=== PATIENT | female | born 1950 | race Caucasian/White ===

== ENCOUNTER 2017-01-30 03:41 | Inpatient (IN) | payer OTHER ==
[~2017-01-30] VITALS: Ht 165.1 cm; Wt 168.5 kg
[2017-01-30] VITALS (10 sets, daily range): BP systolic 92–108; BP diastolic 54–72
[2017-01-30 04:55] LABS: HEMATOCRIT 44.3 % (36.0-46.0); MCH 27.9 PG (29.0-34.0); MCHC 29.6 G/DL (30.0-36.0); MCV 94.3 FL (83-99); MEAN PLAT.VOLUME 11.6 uM^3 (9.5-12.4); PLATELET COUNT 167 K/uL (156-360); RBC DIS.WIDTH-CV 13.9 % (11.8-14.6); RBC DIS.WIDTH-SD 48.3 % (39-53); WHITE BLOOD COUNT 6.6 K/uL (4.1-10.2)
[2017-01-30 05:01] LABS: CARBON DIOXIDE (BICARBONATE) 37.8 MEQ/L (20-31)
[2017-01-30 05:04] LABS: CHLORIDE 96 mEq/L (99-109); INTER. NORMALIZED RATIO 1.3; POTASSIUM 4.4 mEq/L (3.7-5.4); PROTHROMBIN TIME 13.5 (9.2-11.2); PTT 39.7 (25-32); SODIUM 137 mEq/L (136-147)
[2017-01-30 05:06] LABS: GLUCOSE 170 mg/dL (70-99)
[2017-01-30 05:08] LABS: ANION GAP 9 MEQ/L (2-14); TOTAL BILIRUBIN 1.1 mg/dL (0.0-1.0)
[2017-01-30 05:10] LABS: ALKALINE PHOSPHATASE 86 IU/L (3-129); GFR ESTIMATE (CALCULATED) > 59 mL/min/
[2017-01-30 05:11] LABS: UREA NITROGEN (BUN) 14 mg/dL (9-23)
[2017-01-30 05:13] LABS: LIPASE 294 U/L (1.0-51.0)
[2017-01-30 05:16] LABS: TROP-I INTERPRETATION NEGATIVE; TROPONIN-I 0.02 ng/mL (0.0-0.30)
[2017-01-30 06:23] LABS: BASE EXCESS 7.2 mEq/L (-3 to +3); BICARBONATE 37.2 mEq/L (22-26); CARBOXY HGB 1.9 % (0-5); METHEMOGLOBIN 1.2 % (0-1.5); PCO2 83 mm Hg (35-45); PO2 78 mm Hg (80-100)
[2017-01-30 06:24] LABS: COMMENTS - BLOOD GASES C+A+; DEVICE NIV; FI02 60 %; MODE SPONT; PEEP 5 CM/H20; PRES. SUPPORT 12 CM/H2O; SITE LR; TOTAL RESP RATE 19 resp/min; pH 7.26 (7.35-7.45)
[2017-01-30 09:00] LABS: BASE EXCESS 7.8 mEq/L (-3 to +3); CARBOXY HGB 1.9 % (0-5); COMMENTS - BLOOD GASES A+C+; PCO2 77 mm Hg (35-45); PO2 60 mm Hg (80-100); SITE LR; pH 7.29 (7.35-7.45)
[2017-01-30 09:01] LABS: DEVICE 980 MASK VENT; FI02 40 %; MODE SPONT NIV; PEEP 5 CM/H20; PRES. SUPPORT 12 CM/H2O; TOTAL RESP RATE 23 resp/min
[2017-01-30] MEDS ORDERED: XARELTO20 MG PO (09:57)
[2017-01-30] MEDS ORDERED: TOPROL XL50 MG PO (09:57)
[2017-01-30] MEDS ORDERED: GABAPENTIN100 MG PO (09:58)
[2017-01-30] MEDS ORDERED: LISINOPRIL20 MG PO (09:58)
[2017-01-30] MEDS ORDERED: LASIX40 MG PO (09:59)
[2017-01-30] MEDS ORDERED: NOVOLOG PE100 UNITS/ SC (10:01)
[2017-01-30] MEDS ORDERED: PROAIR HFA8.5 GM IH (10:01)
[2017-01-30] MEDS ORDERED: OINTMENT (10:02)
[2017-01-30] MEDS ORDERED: PROVENTIL,2.5 MG/3 M IH (10:02)
[2017-01-30 17:21] LABS: BASE EXCESS 7.2 mEq/L (-3 to +3); BICARBONATE 35.6 mEq/L (22-26); CARBOXY HGB 2.1 % (0-5); METHEMOGLOBIN 1.7 % (0-1.5); PCO2 69 mm Hg (35-45); PO2 80 mm Hg (80-100); pH 7.32 (7.35-7.45)
[2017-01-30 17:22] LABS: COMMENTS - BLOOD GASES A+C+; DEVICE HFNC; O2 FLOW 15 L/MIN; SITE LR; TOTAL RESP RATE 21 resp/min
[2017-01-30 18:07] LABS: METH RESISTANT S AUREUS PCR POSITIVE (NEGATIVE)
[2017-01-30 18:18] LABS: PROBE CHECK PASS
[2017-01-31] VITALS (13 sets, daily range): BP systolic 87–123; BP diastolic 47–85
[2017-01-31 06:46] LABS: ANION GAP 7 MEQ/L (2-14); CHLORIDE 99 MEQ/L (99-109); GFR ESTIMATE (CALCULATED) > 59 mL/min/; POTASSIUM 4.4 MEQ/L (3.7-5.4); SAMPLE HEMOLYSIS CHECK 0; SAMPLE ICTERIC CHECK 0; SAMPLE LIPEMIA CHECK 0; SODIUM 137 MEQ/L (136-147); UREA NITROGEN (BUN) 12 mg/dL (9-23)
[2017-01-31 07:27] LABS: EOSINOPHIL (%) 0 % (0-5); HEMATOCRIT 38.6 % (36.0-46.0); IMMATURE GRANULOCYTE (%) 0.5 % (0.0-0.7); INSTRUMENT ABS NEUTROPHIL CT 5.2 K/uL; LYMPHOCYTE COUNT 0.5 K/uL (1.0-2.8); MCH 27.5 PG (29.0-34.0); MCHC 29.5 G/DL (30.0-36.0); MEAN PLAT.VOLUME 12.1 uM^3 (9.5-12.4); MONOCYTE (%) 5.1 % (3-12); MONOCYTE COUNT 0.3 K/uL (0-0.8); NEUTROPHIL (%) 86.4 % (45-76); NEUTROPHIL COUNT 5.2 K/uL (1.8-6.4); PLATELET COUNT 166 K/uL (156-360); RBC DIS.WIDTH-SD 48.2 % (39-53); RED BLOOD COUNT 4.15 M/uL (3.80-5.20)
[2017-01-31 08:12] LABS: GLUCOSE 116 mg/dL (70-99)
[2017-01-31 12:15] LABS: POINT-OF-CARE METER ID UU14174217
[2017-01-31 19:31] LABS: POINT-OF-CARE METER ID UU14174217
[2017-02-01 00:23] VITALS: BP 133/81
[2017-02-01 04:00] VITALS: BP 104/69
[2017-02-01 07:19] LABS: ANION GAP 5 MEQ/L (2-14); CHLORIDE 98 MEQ/L (99-109); GFR ESTIMATE (CALCULATED) > 59 mL/min/; GLUCOSE 135 mg/dL (70-99); POTASSIUM 4.3 MEQ/L (3.7-5.4); SAMPLE HEMOLYSIS CHECK 0; SAMPLE ICTERIC CHECK 0; SAMPLE LIPEMIA CHECK 0; SODIUM 137 MEQ/L (136-147); UREA NITROGEN (BUN) 14 mg/dL (9-23)
[2017-02-01 07:22] LABS: VANCOMYCIN, TROUGH 17.7 MCG/ML (10-20)
[2017-02-01 07:37] LABS: POINT-OF-CARE METER ID UU14188625
[2017-02-01 07:46] LABS: HEMATOCRIT 31.9 % (36.0-46.0); MCH 27.6 PG (29.0-34.0); MCHC 30.4 G/DL (30.0-36.0); MCV 90.6 FL (83-99); MEAN PLAT.VOLUME 12.5 uM^3 (9.5-12.4); PLATELET COUNT 181 K/uL (156-360); RBC DIS.WIDTH-CV 14.2 % (11.8-14.6); RBC DIS.WIDTH-SD 47.1 % (39-53); RED BLOOD COUNT 3.52 M/uL (3.80-5.20); WHITE BLOOD COUNT 6.8 K/uL (4.1-10.2)
[2017-02-01 08:12] VITALS: BP 125/68
[2017-02-01 11:14] VITALS: BP 128/68
[2017-02-01 11:44] LABS: POINT-OF-CARE METER ID UU14188625
[2017-02-01 20:11] VITALS: BP 138/98
[2017-02-02 02:00] VITALS: BP 128/82
[2017-02-02 07:08] LABS: ANION GAP 7 MEQ/L (2-14); CHLORIDE 100 MEQ/L (99-109); GFR ESTIMATE (CALCULATED) > 59 mL/min/; GLUCOSE 158 mg/dL (70-99); POTASSIUM 4.2 MEQ/L (3.7-5.4); SAMPLE HEMOLYSIS CHECK 0; SAMPLE ICTERIC CHECK 0; SAMPLE LIPEMIA CHECK 0; SODIUM 141 MEQ/L (136-147); UREA NITROGEN (BUN) 17 mg/dL (9-23)
[2017-02-02 08:22] VITALS: BP 136/81
[2017-02-02 11:35] VITALS: BP 140/82
[2017-02-02 12:23] LABS: POINT-OF-CARE METER ID UU14188625
[2017-02-02 16:33] LABS: POINT-OF-CARE METER ID UU14188625
[2017-02-02 16:37] VITALS: BP 134/94
[2017-02-02 20:30] VITALS: BP 160/89
[2017-02-03 07:56] VITALS: BP 128/82
[2017-02-03 09:03] LABS: ANION GAP 7 MEQ/L (2-14); CHLORIDE 102 MEQ/L (99-109); GFR ESTIMATE (CALCULATED) > 59 mL/min/; GLUCOSE 149 mg/dL (70-99); POTASSIUM 5.3 MEQ/L (3.7-5.4); SAMPLE HEMOLYSIS CHECK 2; SAMPLE ICTERIC CHECK 0; SAMPLE LIPEMIA CHECK 0; SODIUM 139 MEQ/L (136-147); UREA NITROGEN (BUN) 21 mg/dL (9-23)
[2017-02-03 11:02] LABS: POTASSIUM 4.6 MEQ/L (3.7-5.4)
[2017-02-03 15:21] VITALS: BP 117/73
[2017-02-04] VITALS: BP 145/85
[2017-02-04 07:28] LABS: POINT-OF-CARE METER ID UU14188625
[2017-02-04 07:50] VITALS: BP 121/85
[2017-02-04 11:30] LABS: POINT-OF-CARE METER ID UU14188625
[2017-02-04 16:06] VITALS: BP 129/78
[2017-02-04 17:13] LABS: POINT-OF-CARE METER ID UU14188625
[2017-02-04 21:29] LABS: POINT-OF-CARE METER ID UU14188625
[2017-02-05] VITALS: BP 132/84
[2017-02-05 08:09] LABS: POINT-OF-CARE METER ID UU14188625
[2017-02-05 16:12] VITALS: BP 158/76
[2017-02-05 21:42] LABS: POINT-OF-CARE METER ID UU14174225
[2017-02-05 21:50] VITALS: BP 118/77
[2017-02-05 22:59] VITALS: BP 122/76
[2017-02-06 07:41] VITALS: BP 130/87
[2017-02-06 11:43] LABS: POINT-OF-CARE METER ID UU14188625
[2017-02-06 12:19] LABS: HEMATOCRIT 46.8 % (36.0-46.0); MCH 26.8 PG (29.0-34.0); MCHC 29.7 G/DL (30.0-36.0); MCV 90.2 FL (83-99); MEAN PLAT.VOLUME 11.8 uM^3 (9.5-12.4); PLATELET COUNT 232 K/uL (156-360); RBC DIS.WIDTH-CV 14.2 % (11.8-14.6); RBC DIS.WIDTH-SD 47.1 % (39-53)
[2017-02-06 12:21] LABS: ANION GAP 8 MEQ/L (2-14); CHLORIDE 94 MEQ/L (99-109); GFR ESTIMATE (CALCULATED) > 59 mL/min/; GLUCOSE 178 mg/dL (70-99); POTASSIUM 4.3 MEQ/L (3.7-5.4); SAMPLE HEMOLYSIS CHECK 0; SAMPLE ICTERIC CHECK 0; SAMPLE LIPEMIA CHECK 0; SODIUM 139 MEQ/L (136-147); UREA NITROGEN (BUN) 23 mg/dL (9-23)
[2017-02-06 12:26] LABS: RED BLOOD COUNT 5.19 M/uL (3.80-5.20); WHITE BLOOD COUNT 13.6 K/uL (4.1-10.2)
[2017-02-06 15:29] VITALS: BP 134/74
[2017-02-06 21:48] LABS: POINT-OF-CARE METER ID UU14174225
[2017-02-06 23:03] VITALS: BP 129/87
[2017-02-07 06:53] LABS: HEMATOCRIT 41.9 % (36.0-46.0); MCH 27.6 PG (29.0-34.0); MCHC 31.3 G/DL (30.0-36.0); MCV 88.4 FL (83-99); MEAN PLAT.VOLUME 11.9 uM^3 (9.5-12.4); PLATELET COUNT 211 K/uL (156-360); RBC DIS.WIDTH-CV 14.1 % (11.8-14.6); RBC DIS.WIDTH-SD 45.9 % (39-53); RED BLOOD COUNT 4.74 M/uL (3.80-5.20); WHITE BLOOD COUNT 10.1 K/uL (4.1-10.2)
[2017-02-07 07:18] LABS: ANION GAP 7 MEQ/L (2-14); CHLORIDE 95 MEQ/L (99-109); GFR ESTIMATE (CALCULATED) > 59 mL/min/; GLUCOSE 147 mg/dL (70-99); SAMPLE HEMOLYSIS CHECK 1; SAMPLE ICTERIC CHECK 0; SAMPLE LIPEMIA CHECK 0; SODIUM 138 MEQ/L (136-147); UREA NITROGEN (BUN) 23 mg/dL (9-23)
[2017-02-07 07:19] LABS: POTASSIUM 4.5 MEQ/L (3.7-5.4)
[2017-02-07 07:53] LABS: POINT-OF-CARE METER ID UU14188625
[2017-02-07 08:02] VITALS: BP 141/76
[2017-02-07 09:34] VITALS: BP 156/89
[2017-02-07 15:15] VITALS: BP 137/86
[2017-02-07 16:28] LABS: POINT-OF-CARE METER ID UU14188625
[2017-02-07 21:31] LABS: POINT-OF-CARE METER ID UU14174225
[2017-02-08] VITALS: BP 125/71
[2017-02-08 07:41] LABS: EOSINOPHIL (%) 0.8 % (0-5); EOSINOPHIL COUNT 0.1 K/uL (0-0.3); HEMATOCRIT 43.4 % (36.0-46.0); IMMATURE GRANULOCYTE (%) 1.6 % (0.0-0.7); IMMATURE GRANULOCYTE COUNT 0.2 K/uL; LYMPHOCYTE COUNT 1.3 K/uL (1.0-2.8); MCH 27.4 PG (29.0-34.0); MCHC 30.6 G/DL (30.0-36.0); MCV 89.5 FL (83-99); MEAN PLAT.VOLUME 12.5 uM^3 (9.5-12.4); MONOCYTE (%) 6.9 % (3-12); MONOCYTE COUNT 0.6 K/uL (0-0.8); PLATELET COUNT 183 K/uL (156-360); RBC DIS.WIDTH-CV 14.6 % (11.8-14.6); RBC DIS.WIDTH-SD 47.4 % (39-53); RED BLOOD COUNT 4.85 M/uL (3.80-5.20); WHITE BLOOD COUNT 9.2 K/uL (4.1-10.2)
[2017-02-08 08:10] LABS: ANION GAP 7 MEQ/L (2-14); CHLORIDE 95 MEQ/L (99-109); GFR ESTIMATE (CALCULATED) > 59 mL/min/; SAMPLE HEMOLYSIS CHECK 2; SAMPLE ICTERIC CHECK 0; SAMPLE LIPEMIA CHECK 0; SODIUM 137 MEQ/L (136-147); UREA NITROGEN (BUN) 21 mg/dL (9-23)
[2017-02-08 08:16] LABS: GLUCOSE 107 mg/dL (70-99); POTASSIUM 4.7 MEQ/L (3.7-5.4)
[2017-02-08 09:17] VITALS: BP 137/89
[2017-02-08 13:32] LABS: TROP-I INTERPRETATION NEGATIVE; TROPONIN-I 0.04 ng/mL (0.0-0.30)
[2017-02-08 16:04] VITALS: BP 142/76
[2017-02-08 16:34] LABS: POINT-OF-CARE METER ID UU14188625
[2017-02-08 18:16] LABS: TROP-I INTERPRETATION NEGATIVE; TROPONIN-I 0.04 ng/mL (0.0-0.30)
[2017-02-08 22:03] LABS: POINT-OF-CARE METER ID UU14174225
[2017-02-09] VITALS: BP 116/77
[2017-02-09 08:03] LABS: POINT-OF-CARE METER ID UU14174225
[2017-02-09 08:31] VITALS: BP 132/66
[2017-02-09 11:24] LABS: POINT-OF-CARE METER ID UU14174225
[2017-02-09] MEDS ORDERED: PREDNISONE20 MG PO (12:39)
[2017-02-09] MEDS ORDERED: ADVAIR HFA120 INHALA IH (12:39)
[2017-02-09] MEDS ORDERED: SPIRIVA RESPIMAT4 GM IH (12:39)
[2017-02-09] MEDS ORDERED: CEFTIN250 MG PO (12:39)
== END 2017-02-09 14:38 | disposition home health service (06) | DRG 189 ==
LOC: EME 03:41 → EDBD 03:41 → 4WEST 09:33 → EDOF 09:33 → 5SOUTH 09:33 → 4WEST 13:05 → 5SOUTH 01-31 19:44
PROVIDERS: Emergency Medicine; Hospitalist; Internal Medicine; Internal Medicine Pulmonary Disease; Physician Assistant Medical
PROC: 5A09357 Assistance with Respiratory Ventilation, Less than 24 Consecutive Hours, Continuous Positive Airway Pressure (ICD-10-PCS; principal; 2017-01-30)
DX: J96.01 Acute respiratory failure with hypoxia (principal); J44.1 Chronic obstructive pulmonary disease with (acute) exacerbation; G47.33 Obstructive sleep apnea (adult) (pediatric); J18.9 Pneumonia, unspecified organism; Z68.44 Body mass index [BMI] 60.0-69.9, adult; Z87.891 Personal history of nicotine dependence; E78.5 Hyperlipidemia, unspecified; I10 Essential (primary) hypertension; E87.2 Acidosis; R74.8 Abnormal levels of other serum enzymes; E11.9 Type 2 diabetes mellitus without complications; I48.2 Chronic atrial fibrillation; E66.01 Morbid (severe) obesity due to excess calories; I51.7 Cardiomegaly; Z79.01 Long term (current) use of anticoagulants
CPT/HCPCS: 36600; 71010; 71020; 71275; 74177; 80048; 80053; 80202; 82803; 82948; 83605; 83690; 83880; 84484; 84999; 85025; 85027; 85610; 85730; 87040; 87641; 93005; 93925; 94002; 94003; 94640; 94640 76; 94644; 94660; 94799; 97530 GO; 97530 GP; 99202; 99281; 99285; J0456; J0696; J1815; J1956; J2920; J2930; J3370; J3475; J7030; J7050; J7512; J7644